=== PATIENT | female | born 1935 | race African-American/Black ===

== ENCOUNTER → 2019-07-05 | Outpatient (CLI) | payer OTHER, BC ==
[~2019-07-05] MED LIST: ACETAMINOPHEN325 M1 PO; ALLEGRA ALLERG180 MG PO; ALLOPURINOL 10100 M1 PO; ALLOPURINOL 10100 M3 PO; ANALPRAM E 2.51 EAC1 RECTAL; ANALPRAM HC 1%30 GM RECTAL; ASA5UEC PO; ASPIRIN EC81 M1; B12INJ IM; BACTRIM DS TAB1 EACH PO; CARDIZEM CD120 MG PO; CEFDINIR300 MG PO; CELEXA 20 MG TA20 M1 PO; CELEXA 20 MG TA20 MG PO; CHLORTHALIDONE50 MG PO; CIPRO250 M1 PO; COLACE100 MG PO; CRESTOR10 MG PO; DIAZEPAM 5 MG5 MG PO; DUONEB 2.5-0.5 M3 ML INH; HYDROCHLOROTHIA50 MG PO; IMDUR 30 MG TAB30 M1 PO; LASIX 40 MG TAB40 M2 PO; LEVOTHROID PO; LEVOTHYROXIN0.112 M1 PO; LEVOTHYROXINE; LIPITOR20 MG PO; LISINOPRIL; LISINOPRIL40 MG PO; LOPRESSOR 12.12.5 MG PO; LOPRESSOR 50 MG50 M1 PO; LOPRESSOR25 PO; LOPRESSOR50 PO; MEN-PHOR LOTIO222 M1 TP; MIRALAX255 GM; NITROGLYCERIN0.4 MG PO; NORCO 5-325 TA1 EACH PO; NORVASC 2.5 MG2.5 M1 PO; NORVASC 5 MG TAB5 MG PO; PEPCID20 MG PO; PLAVIX 75 MG TA75 M1 PO; PREDNISONE 20 M20 MG PO; SIMVASTATIN40 MG; SYNTHROID100 MCG PO; TOPROL XL100 MG PO; TOPROL XL25 MG PO; TOPROL XL50 MG PO; TRIAMCINOLONE A80 G2 TOP; TYLENOL325 MG PO; VANCOMYCIN100 MG/M1 NG; VANCOMYCIN100 MG/M1 PO; VITAMIN B-12500 MCG PO; VITAMIN B-6100 MG PO; VITAMIN D 5050000 I1 PO; VYTORIN 10-401 EACH; ZOCOR80 MG PO
== END ==
LOC: SJCVC 10:10
DX: I45.2 Bifascicular block (principal); R94.31 Abnormal electrocardiogram [ECG] [EKG]; I25.810 Atherosclerosis of coronary artery bypass graft(s) without angina pectoris; I10 Essential (primary) hypertension; E78.00 Pure hypercholesterolemia, unspecified; E78.5 Hyperlipidemia, unspecified; K21.9 Gastro-esophageal reflux disease without esophagitis; Z79.82 Long term (current) use of aspirin; Z79.899 Other long term (current) drug therapy; Z95.1 Presence of aortocoronary bypass graft; Z87.891 Personal history of nicotine dependence

== ENCOUNTER → 2019-09-13 | Outpatient (CLI) | payer OTHER, BC | LOC: SJCVCIMAG 10:26 | DX: I08.3 Combined rheumatic disorders of mitral, aortic and tricuspid valves (principal); I45.10 Unspecified right bundle-branch block; I10 Essential (primary) hypertension; I25.10 Atherosclerotic heart disease of native coronary artery without angina pectoris; E78.00 Pure hypercholesterolemia, unspecified; I48.92 Unspecified atrial flutter; Z87.891 Personal history of nicotine dependence; Z95.1 Presence of aortocoronary bypass graft ==

== ENCOUNTER → 2019-12-12 | Outpatient (CLI) | payer OTHER, BC | LOC: SJCVC 10:33 | PROVIDERS: ATTEND Internal Medicine Cardiovascular Disease | DX: I45.10 Unspecified right bundle-branch block (principal); R94.31 Abnormal electrocardiogram [ECG] [EKG]; I25.810 Atherosclerosis of coronary artery bypass graft(s) without angina pectoris; I10 Essential (primary) hypertension; E78.00 Pure hypercholesterolemia, unspecified; I48.92 Unspecified atrial flutter; K21.9 Gastro-esophageal reflux disease without esophagitis; E78.5 Hyperlipidemia, unspecified; Z79.82 Long term (current) use of aspirin; Z79.899 Other long term (current) drug therapy; Z95.1 Presence of aortocoronary bypass graft; Z87.891 Personal history of nicotine dependence ==

== ENCOUNTER 2020-03-01 17:42 | Emergency (ER) | payer OTHER, BC ==
[~2020-03-01] VITALS: Ht 160 cm; Wt 68.0 kg
== END 2020-03-01 17:55 ==
LOC: ER 17:42
DX: I46.9 Cardiac arrest, cause unspecified (principal); I25.10 Atherosclerotic heart disease of native coronary artery without angina pectoris; I25.2 Old myocardial infarction; I10 Essential (primary) hypertension; E78.00 Pure hypercholesterolemia, unspecified; F32.9 Major depressive disorder, single episode, unspecified; F41.9 Anxiety disorder, unspecified; C18.9 Malignant neoplasm of colon, unspecified; Z98.61 Coronary angioplasty status; Z79.899 Other long term (current) drug therapy; Z79.82 Long term (current) use of aspirin; Z88.1 Allergy status to other antibiotic agents; Z88.8 Allergy status to other drugs, medicaments and biological substances; Z88.5 Allergy status to narcotic agent